=== PATIENT | male | born 1950 | race African-American/Black ===

== ENCOUNTER 2023-04-10 22:33 | Inpatient (IN) | payer MEDICARE, MEDICAID ==
[~2023-04-10] VITALS: Ht 177.8 cm; Wt 68.0 kg
[~2023-04-10 22:33] MED LIST: ACET650S27 RC; AMOX-494 MT; APIX5TAB PO; ATOR10TA MT; BRIM5DRO6 EACHEYE; BUME1TAB33 GT; BUPR-114 PO; CAPS60CR3 TP; CHOL400D7 PO; DOCU-138 MT; FERR325T6 MT; GABA-529 PO; LATA2.5D14 EACHEYE; LIDO700A30 TP; LISI-650 PO; MELA5TAB19 MT; METO25TA3 PO; NITR0.4T49 SL; OMEP20TA23 PO; ONDA4TAB50 PO; SIME125C PO; SPIR25TA6 PO
[2023-04-10] MEDS ORDERED: MORPHINE SULFATE 4 MG/ML CPJ (NOT FOR IM USE) IV ONE (23:00)
[2023-04-10 23:26] LABS: CHLORIDE 110 mEq/L (98-107); INDEX HEMOLYSI 4 (1-3); INDEX ICTERIC 1 (1-4); INDEX LIPEMIC 1 (1-3); SODIUM 136 mEq/L (136-145)
[2023-04-10 23:31] LABS: HEMATOCRIT. 42.5 % (42.0-52.0); HEMOGLOBIN. 13.7 g/dL (14.0-18.0); MEAN CORPUSCULAR HEMOGLOBIN 27.2 pg (28.0-32.0); MEAN CORPUSCULAR HGB CONC 32.1 g/dL (31.0-37.0); MEAN CORPUSCULAR VOLUME 84.6 fL (80.0-94.0); MEAN PLATELET VOLUME 11.7 fl (7.4-10.4); PLATELET 207 x1000/uL (130-400); RED BLOOD CELL COUNT 5.03 mill/uL (4.7-6.1); RED CELL DISTRIBUTION WIDTH 17.7 % (11.6-14.6); WHITE BLOOD COUNT 9.5 x1000/uL (4.5-11.0)
[2023-04-10 23:49] LABS: ALANINE AMINOTRANSFERASE 38 IU/L (13-61); ALBUMIN 3.4 g/dL (3.4-5.0); ASPARTATE AMINOTRANSFERASE 59 IU/L (15-37); BILIRUBIN TOTAL 1.4 mg/dL (0.1-1.0); CALCIUM 8.8 mg/dL (8.5-10.1); CARBON DIOXIDE 17 mEq/L (21-32); CREATININE 2.8 mg/dL (0.6-1.3); GLUCOSE 99 mg/dL (70-105); NT PRO B-TYPE NATRIURETIC PEP 46633 pg/mL (5-125); TROPONIN I HIGH SENSITIVITY 14 ng/L (<78); UREA NITROGEN BLOOD 40 mg/dL (7-21)
[2023-04-10 23:59] LABS: DIFFERENTIAL COMMENT 1
[2023-04-11] MEDS ORDERED: ASPIRIN 325MG TABLET PO ONE (00:15)
[2023-04-11] MEDS ORDERED: MORPHINE SULFATE 4 MG/ML CPJ (NOT FOR IM USE) IV ONE (00:45)
[2023-04-11] MEDS ORDERED: ONDANSETRON HCL 4MG/2ML INJ IV ONE (00:45)
[2023-04-11 00:49] LABS: PLATELET ESTIMATE NORMAL
[2023-04-11 01:05] VITALS: RESP 29
[2023-04-11] MEDS ORDERED: FAMOTIDINE 20MG/2ML VIAL IV ONE (02:00)
[2023-04-11] MEDS ORDERED: METOCLOPRAMIDE HCL 10MG/2ML VIAL IV ONE (02:00)
[2023-04-11] MEDS ORDERED: GUAIFENESIN 200MG/10ML SUGAR FREE UDC PO PRN (02:30)
[2023-04-11] MEDS ORDERED: IPRATROPIUM/ALBUTEROL 0.5-3(2.5)MG/3ML NEB HHN PRN (02:30)
[2023-04-11] MEDS ORDERED: ONDANSETRON HCL 4MG/2ML INJ IV PRN (02:30)
[2023-04-11] MEDS ORDERED: DOCUSATE SODIUM 100MG CAPSULE PO PRN (02:30)
[2023-04-11] MEDS ORDERED: MAGNESIUM/ALUMINUM HYDROXIDE/SIMETHICONE 30ML UDC PO PRN (02:30)
[2023-04-11] MEDS ORDERED: ACETAMINOPHEN 325MG TABLET PO PRN (02:30)
[2023-04-11] MEDS ORDERED: CLONIDINE 0.1MG TABLET PO PRN (02:30)
[2023-04-11 02:37] LABS: TROPONIN I HIGH SENSITIVITY 15 ng/L (<78)
[2023-04-11] MEDS ORDERED: FUROSEMIDE 40MG/4ML VIAL IVP NR (02:45)
[2023-04-11] MEDS ORDERED: BUMETANIDE 1MG/4ML VIAL IV SCH ×2 (02:45→11:30)
[2023-04-11] MEDS ORDERED: HYDRALAZINE 20MG/ML VIAL IV PRN (02:45)
[2023-04-11] MEDS ORDERED: IPRATROPIUM BROMIDE (0.02%) 0.5MG/2.5ML NEB HHN PRN (03:45)
[2023-04-11 03:56] VITALS: RESP 26
[2023-04-11 04:05] LABS: BG BASE EXCESS -9.9 mmol/L (-2.0-2.0); BG CARBOXYHEMOGLOBIN 1.1 % (0.5-1.5); BG FRACTION INSPIRED OXYGEN 80; BG METHEMOGLOBIN 0.4 % (0.0-1.5); BG OXYHEMOGLOBIN 98.5 % (94.0-97.0); BG PCO2 26.6 mmHg (35.0-45.0); BG PH 7.339 (7.350-7.450); BG PO2 392.7 mmHg (75.0-100.0); BG SAMPLE SITE RIGHT RADIAL; BG TOTAL HEMOGLOBIN 15.6 g/dL (12.0-18.0); BG TOTAL RESPIRATORY RATE 26 b/min; BG VENT MODE MASK - BIPAP
[2023-04-11] MEDS: ENOXAPARIN 80MG/0.8ML SYR SUBCUT SCH (05:04)
[2023-04-11 07:23] LABS: BASOPHILS % 0.5 % (0.0-2.0); DIFFERENTIAL COMMENT 0; EOSINOPHILS % 0.1 % (0.0-5.0); HEMATOCRIT. 49.3 % (42.0-52.0); HEMOGLOBIN. 15.6 g/dL (14.0-18.0); LYMPHOCYTES % 10.8 % (20.0-50.0); MEAN CORPUSCULAR HEMOGLOBIN 27.5 pg (28.0-32.0); MEAN CORPUSCULAR HGB CONC 31.7 g/dL (31.0-37.0); MEAN CORPUSCULAR VOLUME 86.8 fL (80.0-94.0); MEAN PLATELET VOLUME 10.9 fl (7.4-10.4); MONOCYTES % 8.2 % (2.0-8.0); NEUTROPHILS % 80.4 % (40.0-76.0); PLATELET 199 x1000/uL (130-400); RED BLOOD CELL COUNT 5.68 mill/uL (4.7-6.1); RED CELL DISTRIBUTION WIDTH 18.7 % (11.6-14.6); WHITE BLOOD COUNT 8.2 x1000/uL (4.5-11.0)
[2023-04-11 07:34] LABS: INR 1.5; PROTHROMBIN TIME 16.1 sec (9.6-11.0)
[2023-04-11 08:05] LABS: VITAMIN B12 SERUM 1464 pg/mL (211-911)
[2023-04-11 08:20] LABS: LACTIC ACID 3.1 mmol/L (0.4-2.0)
[2023-04-11 09:01] LABS: CHLORIDE 110 mEq/L (98-107); INDEX HEMOLYSI 2 (1-3); INDEX ICTERIC 1 (1-4); INDEX LIPEMIC 1 (1-3); SODIUM 134 mEq/L (136-145)
[2023-04-11 09:12] LABS: CHOLESTEROL 129 mg/dL (<200)
[2023-04-11 09:13] LABS: ALANINE AMINOTRANSFERASE 53 IU/L (13-61); ALBUMIN 3.9 g/dL (3.4-5.0); ASPARTATE AMINOTRANSFERASE 66 IU/L (15-37); BILIRUBIN TOTAL 1.4 mg/dL (0.1-1.0); CALCIUM 9.1 mg/dL (8.5-10.1); CARBON DIOXIDE 15 mEq/L (21-32); GLUCOSE 102 mg/dL (70-105); HDL CHOLESTEROL 62 mg/dL (40-59); IRON 60 ug/dL (50-175); LDL CHOLESTEROL 70 mg/dL (5-100); PHOSPHORUS 4.9 mg/dL (2.5-4.9); TOTAL IRON BINDING CAPACITY 465 ug/dL (250-450); TRIGLYCERIDE 77 mg/dL (0-150); UREA NITROGEN BLOOD 40 mg/dL (7-21)
[2023-04-11 09:18] LABS: POTASSIUM 6.2 mEq/L (3.5-5.1)
[2023-04-11] MEDS: FAMOTIDINE 20MG/2ML VIAL IV SCH (09:50)
[2023-04-11] MEDS ORDERED: CALCIUM CHLORIDE 1GM/10ML SYR IV NR (11:00)
[2023-04-11] MEDS ORDERED: SODIUM POLYSTYRENE SULFONATE 15 G/60 ML BOT PO NR (11:00)
[2023-04-11 12:59] LABS: CREATINE KINASE MB FRACTION 5.1 ng/mL (0.5-3.6)
[2023-04-11 15:01] LABS: CLARITY URINE CLEAR (CLEAR); COLOR URINE YELLOW (YELLOW); GLUCOSE URINE NEGATIVE (NEGATIVE); KETONES URINE NEGATIVE (NEGATIVE); LEUKOCYTE ESTERASE URINE NEGATIVE (NEGATIVE); NITRITE URINE NEGATIVE (NEGATIVE); OCCULT BLOOD URINE TRACE (NEGATIVE); PROTEIN URINE 1+ (NEGATIVE); SPECIFIC GRAVITY URINE 1.012 (1.005-1.030); UROBILINOGEN URINE 0.2 E.U./dL (0.2-1.0)
[2023-04-11 15:27] LABS: BACTERIA URINE 1+; RBC URINE NONE SEEN /hpf (0-2); SQUAMOUS EPITHELIAL CELL URINE NONE SEEN /lpf (RARE/1+); WBC URINE 0-2 /hpf (0-2); YEAST URINE NONE SEEN
[2023-04-11 15:29] LABS: *AMPHETAMINES SCREEN URINE NEGATIVE (NEGATIVE); *BARBITURATES SCREEN URINE NEGATIVE (NEGATIVE); *BENZODIAZEPINES SCREEN URINE NEGATIVE (NEGATIVE); *COCAINE SCREEN URINE NEGATIVE (NEGATIVE); CANNABINOID URINE SCREEN NEGATIVE (NEGATIVE); ECSTASY MDMA SCREEN URINE CONF.TEST INDICATED (NEGATIVE); METHADONE URINE SCREEN NEGATIVE (NEGATIVE); OPIATES URINE SCREEN PRESUMTIVE POSITIVE (NEGATIVE); PHENCYCLIDINE URINE SCREEN NEGATIVE (NEGATIVE)
[2023-04-11 16:00] VITALS: BP_SYST 114; BP_SYST 121; BP_DIAS 80; BP_DIAS 86; PULSE 102; PULSE 110; RESP 18; RESP 20; TEMP 96.5; TEMP 96.8
[2023-04-11] MEDS: BUMETANIDE 2.5MG/10ML VIAL IV SCH (17:38)
[2023-04-11 20:00] VITALS: BP 135/101; PULSE 117; RESP 21; TEMP 97.5
[2023-04-11 21:15] LABS: POTASSIUM 5.2 mEq/L (3.5-5.1)
[2023-04-11 21:19] LABS: CREATININE 3.1 mg/dL (0.6-1.3)
[2023-04-11 21:23] LABS: CREATINE KINASE MB FRACTION 5.4 ng/mL (0.5-3.6)
[2023-04-12] VITALS (44 sets, daily range): BP systolic 76–153; BP diastolic 16–88; PULSE 56–116; RESP 8–32; TEMP 97.5–100
[2023-04-12] MEDS ORDERED: METOPROLOL TARTRATE 5MG/5ML VIAL IV NR (01:00)
[2023-04-12] MEDS ORDERED: LORAZEPAM 2MG/ML CPJ IV NR (01:15)
[2023-04-12 01:57] LABS: HEMATOCRIT 47.5 % (42.0-52.0); MEAN CORPUSCULAR HEMOGLOBIN 27.3 pg (28.0-32.0); MEAN CORPUSCULAR HGB CONC 31.5 g/dL (31.0-37.0); MEAN CORPUSCULAR VOLUME 86.6 fL (80.0-94.0); PLATELET 202 x1000/uL (130-400); RED BLOOD CELL COUNT 5.48 mill/uL (4.7-6.1); RED CELL DISTRIBUTION WIDTH 18.8 % (11.6-14.6); WHITE BLOOD COUNT 10.3 x1000/uL (4.5-11.0)
[2023-04-12 02:05] LABS: CHLORIDE 109 mEq/L (98-107); CREATINE KINASE MB FRACTION 5.2 ng/mL (0.5-3.6); INDEX HEMOLYSI 1 (1-3); INDEX ICTERIC 1 (1-4); INDEX LIPEMIC 1 (1-3); POTASSIUM 4.7 mEq/L (3.5-5.1); SODIUM 141 mEq/L (136-145)
[2023-04-12 02:12] LABS: ALANINE AMINOTRANSFERASE 44 IU/L (13-61); ALBUMIN 3.7 g/dL (3.4-5.0); ASPARTATE AMINOTRANSFERASE 42 IU/L (15-37); BILIRUBIN TOTAL 1.2 mg/dL (0.1-1.0); CALCIUM 9.2 mg/dL (8.5-10.1); CARBON DIOXIDE 19 mEq/L (21-32); CREATININE 3.2 mg/dL (0.6-1.3); GLUCOSE 82 mg/dL (70-105); PROTEIN TOTAL 7.6 g/dL (6.0-8.3); UREA NITROGEN BLOOD 60 mg/dL (7-21)
[2023-04-12] MEDS: ENOXAPARIN 80MG/0.8ML SYR SUBCUT SCH (03:53)
[2023-04-12 07:11] LABS: HEMATOCRIT. 42.1 % (42.0-52.0); HEMOGLOBIN. 13.5 g/dL (14.0-18.0); MEAN CORPUSCULAR HEMOGLOBIN 27.4 pg (28.0-32.0); MEAN CORPUSCULAR HGB CONC 32.1 g/dL (31.0-37.0); MEAN CORPUSCULAR VOLUME 85.4 fL (80.0-94.0); MEAN PLATELET VOLUME 11.7 fl (7.4-10.4); PLATELET 176 x1000/uL (130-400); RED BLOOD CELL COUNT 4.94 mill/uL (4.7-6.1); WHITE BLOOD COUNT 16.9 x1000/uL (4.5-11.0)
[2023-04-12 07:16] LABS: DIFFERENTIAL COMMENT 1
[2023-04-12 07:18] LABS: CHLORIDE 110 mEq/L (98-107); INDEX HEMOLYSI 1 (1-3); INDEX ICTERIC 1 (1-4); INDEX LIPEMIC 1 (1-3); POTASSIUM 4.3 mEq/L (3.5-5.1); SODIUM 139 mEq/L (136-145)
[2023-04-12 07:27] LABS: ALANINE AMINOTRANSFERASE 38 IU/L (13-61); ALBUMIN 3.2 g/dL (3.4-5.0); ASPARTATE AMINOTRANSFERASE 36 IU/L (15-37); BILIRUBIN TOTAL 1.3 mg/dL (0.1-1.0); CALCIUM 8.6 mg/dL (8.5-10.1); CARBON DIOXIDE 21 mEq/L (21-32); CREATININE 3.3 mg/dL (0.6-1.3); GLUCOSE 124 mg/dL (70-105); PROTEIN TOTAL 6.4 g/dL (6.0-8.3); UREA NITROGEN BLOOD 54 mg/dL (7-21)
[2023-04-12] MEDS: BUMETANIDE 2.5MG/10ML VIAL IV SCH ×3 (07:35→18:13)
[2023-04-12] MEDS ORDERED: AMIODARONE HCL 50MG/ML 3ML VIAL IV ONE (08:30)
[2023-04-12 08:33] LABS: PLATELET ESTIMATE NORMAL
[2023-04-12 08:34] LABS: ANISOCYTOSIS 1+
[2023-04-12] MEDS: FAMOTIDINE 20MG/2ML VIAL IV SCH (09:19)
[2023-04-12] MEDS: METOPROLOL TARTRATE 25MG TABLET PO SCH ×2 (09:20→21:00)
[2023-04-12] MEDS ORDERED: AMIODARONE HCL 150 MG in DEXT 5% WATER 100 ML IV NR (11:00)
[2023-04-12] MEDS ORDERED: AMIODARONE HCL 900 MG in DEXT 5% WATER 482 ML IV PRN (11:00)
[2023-04-12] MEDS ORDERED: CLOPIDOGREL 75MG TABLET PO NR (11:15)
[2023-04-12 11:39] LABS: TROPONIN I HIGH SENSITIVITY 38 ng/L (<78)
[2023-04-13] VITALS (23 sets, daily range): BP systolic 84–140; BP diastolic 38–101; PULSE 62–79; RESP 8–25; TEMP 97.4–98.2
[2023-04-13] MEDS: ENOXAPARIN 80MG/0.8ML SYR SUBCUT SCH (05:05)
[2023-04-13 05:29] LABS: HEMATOCRIT 40.5 % (42.0-52.0); MEAN CORPUSCULAR HGB CONC 32.2 g/dL (31.0-37.0); MEAN CORPUSCULAR VOLUME 84.1 fL (80.0-94.0); PLATELET 166 x1000/uL (130-400); RED BLOOD CELL COUNT 4.81 mill/uL (4.7-6.1); RED CELL DISTRIBUTION WIDTH 17.6 % (11.6-14.6); WHITE BLOOD COUNT 11.7 x1000/uL (4.5-11.0)
[2023-04-13 05:41] LABS: CHLORIDE 112 mEq/L (98-107); INDEX HEMOLYSI 1 (1-3); INDEX ICTERIC 1 (1-4); INDEX LIPEMIC 1 (1-3); POTASSIUM 3.7 mEq/L (3.5-5.1); SODIUM 141 mEq/L (136-145)
[2023-04-13 06:01] LABS: ALANINE AMINOTRANSFERASE 32 IU/L (13-61); ALBUMIN 3.1 g/dL (3.4-5.0); ASPARTATE AMINOTRANSFERASE 23 IU/L (15-37); BILIRUBIN DIRECT 0.3 mg/dL (0.0-0.2); BILIRUBIN TOTAL 1.3 mg/dL (0.1-1.0); CALCIUM 8.2 mg/dL (8.5-10.1); CARBON DIOXIDE 23 mEq/L (21-32); CREATININE 2.8 mg/dL (0.6-1.3); GLUCOSE 88 mg/dL (70-105); PROTEIN TOTAL 6.2 g/dL (6.0-8.3); UREA NITROGEN BLOOD 56 mg/dL (7-21)
[2023-04-13] MEDS: BUMETANIDE 2.5MG/10ML VIAL IV SCH ×3 (07:12→17:54)
[2023-04-13] MEDS: METOPROLOL TARTRATE 25MG TABLET PO SCH (09:00)
[2023-04-13] MEDS: CLOPIDOGREL 75MG TABLET PO SCH (09:01)
[2023-04-13] MEDS: FAMOTIDINE 20MG/2ML VIAL IV SCH (09:01)
[2023-04-13] MEDS: TRAMADOL 50MG TABLET PO PRN ×2 (11:45→19:56)
[2023-04-13] MEDS ORDERED: NALOXONE HCL 0.4MG/ML VIAL IV PRN (11:45)
[2023-04-13] MEDS: METOPROLOL TARTRATE 50MG TABLET PO SCH (21:08)
[2023-04-14] VITALS: BP 104/69; PULSE 63; RESP 18; TEMP 97.3
[2023-04-14 04:00] VITALS: BP 111/76; PULSE 64; RESP 16; TEMP 97.3
[2023-04-14] MEDS: ENOXAPARIN 80MG/0.8ML SYR SUBCUT SCH (05:00)
[2023-04-14] MEDS: BUMETANIDE 2.5MG/10ML VIAL IV SCH ×2 (05:01→16:31)
[2023-04-14 06:58] LABS: HEMATOCRIT. 43.1 % (42.0-52.0); MEAN CORPUSCULAR HEMOGLOBIN 27.3 pg (28.0-32.0); MEAN CORPUSCULAR HGB CONC 32.6 g/dL (31.0-37.0); MEAN CORPUSCULAR VOLUME 83.8 fL (80.0-94.0); MEAN PLATELET VOLUME 10.9 fl (7.4-10.4); PLATELET 163 x1000/uL (130-400); RED BLOOD CELL COUNT 5.14 mill/uL (4.7-6.1); RED CELL DISTRIBUTION WIDTH 17.8 % (11.6-14.6); WHITE BLOOD COUNT 9.9 x1000/uL (4.5-11.0)
[2023-04-14 07:23] LABS: DIFFERENTIAL COMMENT 1
[2023-04-14 08:39] VITALS: BP 123/78; PULSE 62; RESP 18; TEMP 97.3
[2023-04-14] MEDS: FAMOTIDINE 20MG/2ML VIAL IV SCH (08:41)
[2023-04-14] MEDS: CLOPIDOGREL 75MG TABLET PO SCH (08:42)
[2023-04-14] MEDS: METOPROLOL TARTRATE 50MG TABLET PO SCH ×2 (08:42→20:19)
[2023-04-14 09:33] LABS: POTASSIUM 3.3 mEq/L (3.5-5.1)
[2023-04-14 09:44] LABS: CALCIUM 8.4 mg/dL (8.5-10.1); CREATININE 2.1 mg/dL (0.6-1.3)
[2023-04-14 12:00] VITALS: BP 136/83; PULSE 61; RESP 18; TEMP 96.7
[2023-04-14 13:43] LABS: ANISOCYTOSIS 1+; PLATELET ESTIMATE NORMAL
[2023-04-14] MEDS ORDERED: POTASSIUM CHLORIDE 20MEQ TABLET SR PO NR (15:30)
[2023-04-14 16:00] VITALS: BP 120/94; PULSE 72; RESP 20; TEMP 97.1
[2023-04-14] MEDS: TRAMADOL 50MG TABLET PO PRN (19:12)
[2023-04-14 20:00] VITALS: BP 144/95; PULSE 74; RESP 18; TEMP 97.6
[2023-04-15] VITALS (7 sets, daily range): BP systolic 114–145; BP diastolic 57–86; PULSE 62–78; RESP 18; TEMP 96.6–98.1; O2SAT 96
[2023-04-15] MEDS: ENOXAPARIN 80MG/0.8ML SYR SUBCUT SCH (05:03)
[2023-04-15] MEDS: BUMETANIDE 2.5MG/10ML VIAL IV SCH (05:06)
[2023-04-15 07:28] LABS: POTASSIUM 4.1 mEq/L (3.5-5.1)
[2023-04-15 07:34] LABS: BASOPHILS % 0.5 % (0.0-2.0); DIFFERENTIAL COMMENT 0; EOSINOPHILS % 0.7 % (0.0-5.0); HEMATOCRIT. 45.1 % (42.0-52.0); HEMOGLOBIN. 14.9 g/dL (14.0-18.0); LYMPHOCYTES % 10.5 % (20.0-50.0); MEAN CORPUSCULAR HEMOGLOBIN 27.6 pg (28.0-32.0); MEAN CORPUSCULAR VOLUME 83.6 fL (80.0-94.0); MEAN PLATELET VOLUME 11.6 fl (7.4-10.4); MONOCYTES % 12.3 % (2.0-8.0); PLATELET 190 x1000/uL (130-400); RED BLOOD CELL COUNT 5.39 mill/uL (4.7-6.1); RED CELL DISTRIBUTION WIDTH 17.6 % (11.6-14.6); WHITE BLOOD COUNT 8.7 x1000/uL (4.5-11.0)
[2023-04-15 07:40] LABS: CALCIUM 8.9 mg/dL (8.5-10.1); CREATININE 2.1 mg/dL (0.6-1.3)
[2023-04-15] MEDS ORDERED: REGADENOSON 0.4 MG/5 ML IV NR (08:00)
[2023-04-15] MEDS: METOPROLOL TARTRATE 50MG TABLET PO SCH (08:54)
[2023-04-15] MEDS: CLOPIDOGREL 75MG TABLET PO SCH (08:54)
[2023-04-15] MEDS: FAMOTIDINE 20MG/2ML VIAL IV SCH (08:57)
[2023-04-15] MEDS ORDERED: METO-539 PO (12:05)
[2023-04-15] MEDS ORDERED: FERR325T6 MT (12:05)
[2023-04-15] MEDS ORDERED: CLOP-31 PO (12:05)
[2023-04-16] MEDS ORDERED: ENOXAPARIN 80MG/0.8ML SYR SUBCUT SCH (09:00)
== END 2023-04-15 17:18 | DRG 291 ==
LOC: ER 22:33 → MICUSO 04-11 01:45 → EDBEDREQTM 04-11 01:58 → EDBEDREQSVC 04-11 01:58 → EDBEDREQ 04-11 01:58 → 8WST 04-11 15:38 → CVICU 04-12 04:20 → 8WST 04-13 16:32
PROVIDERS: ADMIT Internal Medicine; ATTEND Internal Medicine
PROC: 5A09357 Assistance with Respiratory Ventilation, Less than 24 Consecutive Hours, Continuous Positive Airway Pressure (ICD-10-PCS; principal; 2023-04-11)
PROC: 5A2204Z Restoration of Cardiac Rhythm, Single (ICD-10-PCS; 2023-04-12)
DX: I13.0 Hypertensive heart and chronic kidney disease with heart failure and stage 1 through stage 4 chronic kidney disease, or unspecified chronic kidney disease (principal); I50.43 Acute on chronic combined systolic (congestive) and diastolic (congestive) heart failure; J96.01 Acute respiratory failure with hypoxia; N17.0 Acute kidney failure with tubular necrosis; I47.20 Ventricular tachycardia, unspecified; I48.0 Paroxysmal atrial fibrillation; N18.31 Chronic kidney disease, stage 3a; I27.20 Pulmonary hypertension, unspecified; N28.1 Cyst of kidney, acquired; K81.9 Cholecystitis, unspecified; R74.01 Elevation of levels of liver transaminase levels; R00.1 Bradycardia, unspecified; E78.00 Pure hypercholesterolemia, unspecified; D63.8 Anemia in other chronic diseases classified elsewhere; D50.9 Iron deficiency anemia, unspecified; I07.1 Rheumatic tricuspid insufficiency; E87.5 Hyperkalemia; E83.41 Hypermagnesemia; I45.10 Unspecified right bundle-branch block; Z79.899 Other long term (current) drug therapy
CPT/HCPCS: 36415; 36600; 71045; 76700; 80048; 80053; 80061; 80305; 81003; 82248; 82375; 82550; 82553; 82570; 82607; 82728; 82746; 82805; 82962; 83540; 83550; 83605; 83735; 83880; 84100; 84145; 84300; 84484; 84540; 85025; 85027; 93005; 93306; 93970; 94660; 99291; J0282; J1650; J2270; J2405; J2765; J3490; J7060